=== PATIENT | female | born 1995 | race Caucasian/White ===

== ENCOUNTER 2020-02-04 12:16 | Emergency (ER) | payer OTHER ==
[~2020-02-04] VITALS: Ht 165.1 cm; Wt 68.0 kg
[2020-02-04 13:04] LABS: URINE BILIRUBIN NEGATIVE (Negative); URINE BLOOD 3+ (Negative); URINE CLARITY SL CLOUDY; URINE COLOR YELLOW; URINE GLUCOSE-RANDOM NEGATIVE (Negative); URINE KETONES NEGATIVE (Negative); URINE LEUKOCYTES-REFLEX TRACE (Negative); URINE PROTEIN NEGATIVE (Negative); URINE SPECIFIC GRAVITY 1.015 (1.005-1.030); URINE UROBILINOGEN 0.2 E.U./dl (0.2-1.0)
[2020-02-04 13:07] LABS: URINE NITRITE-REFLEX POSITIVE (Negative)
[2020-02-04 13:12] LABS: BACTERIA-REFLEX >30 Many /HPF (None Seen); CASTS None Seen /LPF (None Seen); MUCUS 4-6 Moderate strn/LPF (None Seen); SQUAMOUS >10 Many /LPF (0-3); URINE RBC 3-10 Few /HPF (0-2); URINE WBC-REFLEX 0-5 Rare /HPF (0-5)
[2020-02-04 13:13] LABS: CRYSTALS None Seen /LPF (None Seen)
[2020-02-04] MEDS ORDERED: DIFLUCAN150 MG PO (13:24)
[2020-02-04] MEDS ORDERED: AUGMENTIN 875-1 EACH PO (13:24)
[2020-02-04 13:55] VITALS: BP 139/72
== END 2020-02-04 13:55 | disposition home or self-care (01) ==
LOC: M.ERS 12:16
PROVIDERS: Nurse Practitioner Family
DX: N76.2 Acute vulvitis (principal); N39.0 Urinary tract infection, site not specified; F12.90 Cannabis use, unspecified, uncomplicated; Z98.51 Tubal ligation status; Z98.890 Other specified postprocedural states